=== PATIENT | female | born 1980 | race Caucasian/White ===

== ENCOUNTER → 2020-04-25 16:27 | Outpatient (BNVA) | payer OTHER, SELFPAY | DX: Z20.828 Contact with and (suspected) exposure to other viral communicable diseases (principal) | CPT/HCPCS: 87635 ==

== ENCOUNTER → 2020-06-13 11:58 | Outpatient (BNVA) | payer OTHER, SELFPAY | PROVIDERS: Visit Provider Nurse Practitioner Family | DX: J20.9 Acute bronchitis, unspecified (principal); Z20.822 Contact with and (suspected) exposure to COVID-19 | CPT/HCPCS: 87635 ==

== ENCOUNTER 2020-06-21 18:57 | Emergency (ER) | payer SELFPAY ==
[2020-06-21 19:04] VITALS: BP 131/95; PULSE 92; RESP 18; TEMP 36.9; O2SAT 96; BMI 45.1
--- NOTE | 2020-06-21 19:12 | XRR_ITS ---
PROCEDURE INFORMATION: Exam: XR Right Knee Exam date and time: 06/21/2020 7:18 PM Age: 39 years old Clinical indication: Pain; Knee; Right; Prior surgery; Surgery date: 6+ months; Surgery type: Acl; Additional info: Pian, swelling TECHNIQUE: Imaging protocol: XR Right knee. Views: 3 views. COMPARISON: No relevant prior studies available. FINDINGS: Bones/joints: There is a satisfactory appearance of the postoperative changes of ACL reconstruction. There is a serpiginous lucent line in the intercondylar portion of the femur on the straight AP view suspected be postoperative changes or prominent nutrient vascular channel. There is no knee joint effusion. The joint spaces are maintained. There is no intra-articular body. No acute fracture or dislocation. No chondrocalcinosis. Soft tissues: There is subcutaneous edema lateral to the knee. There is no foreign body. XR/XR knee RT 3V* [id number] IMPRESSION: No acute bony abnormality.
--- NOTE | 2020-06-21 19:12 | XRR_ITS ---
PROCEDURE INFORMATION: Exam: XR Right Hip Exam date and time: 06/21/2020 7:18 PM Age: 39 years old Clinical indication: Hip pain; Right hip TECHNIQUE: Imaging protocol: XR Right hip. Views: 1 view hip with pelvis when performed. COMPARISON: No relevant prior studies available. FINDINGS: Bones/joints: Unremarkable. No acute fracture. No evidence of avascular necrosis. No dislocation. No significant degenerative changes. Soft tissues: Unremarkable. XR/XR hip RT 2-3V wo/w pel* [id number] IMPRESSION: No acute findings.
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
[2020-06-21 19:22] VITALS: BP 131/101; PULSE 95; RESP 18; O2SAT 95
[2020-06-21] MEDS: TRAMadol 50 mg Tablet PO (20:16)
[2020-06-21 20:20] VITALS: BP 132/96; PULSE 90; RESP 18; O2SAT 96
--- NOTE | 2020-06-24 10:09 | DCPLANNER ---
phlebotomy manager had message to schedule a follow up appointment for patient with ortho. phlebotomy manager called the ortho clinic, spoke with Michelle, gave clinic patients information. phlebotomy manager was told that patients information would be printed and reviewed. Clinic will call patient with appointment information.
--- NOTE | 2020-07-10 07:58 | DCPLANNER ---
business strategy manager called ortho to confirm that a follow up appointment had been scheduled for patient. business strategy manager spoke with Michelle, who stated that clinic tried to call patient, unable to speak with patient and unable to leave a voicemail. business strategy manager called phone number [phone], unable to speak with patient at this time, was able to leave a voicemail for patient to return case work aide phone call.
== END 2020-06-21 20:33 | disposition home or self-care (01) ==
LOC: ER 20:15
PROVIDERS: Emergency Provider Nurse Practitioner Family
DX: M25.561 Pain in right knee (principal)
CPT/HCPCS: 73502; 73562; 99283

== ENCOUNTER 2021-11-07 17:02 | Emergency (ER) | payer SELFPAY ==
[2021-11-07 17:05] VITALS: BP 148/98; PULSE 100; RESP 18; TEMP 37.7; O2SAT 96; BMI 44.1
--- NOTE | 2021-11-07 17:21 | XRR_ITS ---
PROCEDURE INFORMATION: Exam: XR Chest Exam date and time: 11/07/2021 5:27 PM Age: 41 years old Clinical indication: Cough TECHNIQUE: Imaging protocol: Radiologic exam of the chest. Views: 1 view. COMPARISON: No relevant prior studies available. FINDINGS: Lungs: Unremarkable. No consolidation. Pleural spaces: Unremarkable. No pleural effusion. No pneumothorax. Heart/Mediastinum: Unremarkable. No cardiomegaly. Bones/joints: Unremarkable. XR/XR chest 1V portable [id number] IMPRESSION: No acute findings.
[2021-11-07 17:47] LABS: Rapid Strep A Test Negative (Negative)
[2021-11-07 17:55] LABS: SARS Covid-2 Antigen Negative (Negative)
--- NOTE | 2021-11-07 17:57 | W.ED.URI ---
HPI - URI/Sore Throat General: Chief Complaint: Upper Respiratory Infection Stated Complaint: sore throat, congestion Time Seen by Provider: 11/07/21 17:24 Source: patient Mode of arrival: ambulatory Limitations: no limitations History of Present Illness: 41-year-old female states that over the last 2 days she has had some congestion along with low-grade fevers does have a low-grade fever here states she had a some sore throat along with a burning in her chest. She denies any sick contacts states she is also lost her voice. Denies any vomiting or diarrhea denies any severe pain rates her throat pain a 4 out of 10 currently Associated symptoms: Reports fever(s); Deny abdominal pain, chest pain, diarrhea, headache(s), nausea or vomiting Review of Systems Const: Reports: fever(s) and body aches Eyes: Denies: blurry vision or eye discomfort ENMT: Reports: throat pain Card: Denies: chest pain Resp: Reports: non-productive cough GI: Denies: abdominal pain, nausea, vomiting or diarrhea : Denies: dysuria Musc: Denies: neck pain or back pain Skin/Breast: Denies: rash Neuro: Denies: headache(s) Psych: Denies: depression Ran/Lymph: Denies: easy bruising All/Imm: Denies: urticaria PFSH ED PFSH: Medical History 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, recurrent, in partial remission Major depressive disorder, recurrent, moderate Psychiatric care Social History Smoking and tobacco status: never smoked Second hand smoke exposure: No Smoking risk assessment/counseling performed?: No Female Reproductive History: Date of last menstrual period: 10/24/21 Physical Exam Const: COMMON NORMALS: no acute distress, patient oriented x3 and healthy appearing HENMT: COMMON NORMALS: normocephalic and atraumatic HEAD & SCALP: normocephalic and atraumatic Eye: COMMON NORMALS: Equal, round and reactive pupils present and EOMs intact bilaterally PUPIL: Yes Equal, round and reactive pupils present Neck/C-Spine: COMMON NORMALS: full ROM and supple Chest: COMMONS NORMALS: normal inspection of the chest and normal palpation of entire chest wall Resp: COMMON NORMALS: normal respiratory effort, No retractions, No use of accessory muscles and clear to auscultation bilaterally AUSCULTATION: clear to auscultation bilaterally Cardio: COMMON NORMALS: regular rate, regular rhythm and No murmurs present (Cardio) RATE: regular rate RHYTHM: regular rhythm GI: COMMON NORMALS: Normal to inspection, nondistended, normoactive bowel sounds present, Soft to palpation, non-tender and no masses PALPATION: Yes Soft to palpation Extremity: COMMON NORMALS: normal to inspection and full ROM Neuro: COMMON NORMALS: patient oriented x3, moves all extremities and no focal motor deficits Psych: COMMON NORMALS: mental status grossly normal, Normal thought process present and cooperative THOUGHT PROCESS: Normal thought process present Skin: COMMON NORMALS: no rashes or lesions noted and no wounds GENERAL SKIN EXAM: no rashes or lesions noted Course Vital Signs: Vital signs: Vital Signs Temperature 99.9 F H 11/07/21 17:05 Pulse Rate 100 11/07/21 17:05 Respiratory Rate 18 11/07/21 17:05 Blood Pressure 148/98 11/07/21 17:05 Pulse Oximetry 96 11/07/21 17:05 Oxygen Delivery Me thod 11/07/21 17:05 MDM - URI/Sore Throat Medical Decision Making Patient presents here with cough congestion fever along with sore throat likely has bronchitis she does have a low-grade fever here we will give her Decadron Keflex COVID was negative she is to follow-up with PCP and return if worsening. Lab Data Radiology Impressions Chest X-Ray 11/07/21 17:21 IMPRESSION: No acute findings. Laboratory Results SARS-CoV-2 Ag (Rapid) Negative (Negative) 11/07/21 17:22 Group A Strep Rapid Negative (Negative) 11/07/21 17:22 Discharge Plan Discharge Patient Disposition: Home Clinical Impression: Upper respiratory infection Qualifiers: URI type: unspecified URI Qualified Code(s): J06.9 - Acute upper respiratory infection, unspecified Condition: Stable Prescriptions: New cephalexin 500 mg capsule 500 mg PO TID 7 Days Qty: 21 0RF No Action hydroxyzine pamoate 25 mg capsule 25 mg PO BID PRN (Reason: anxiety) Qty: 30 1RF Rx Instructions: Take one capsule up to twice a day, if needed for anxiety sertraline 100 mg tablet 100 mg PO .q am Qty: 30 1RF Rx Instructions: Take one tablet by mouth every morning; stop paroxetine trazodone 100 mg tablet 200 mg PO .HS Qty: 60 1RF Rx Instructions: take two tablets by mouth daily at bedtime lamotrigine 25 mg tablet 50 mg PO DAILY Qty: 60 0RF Rx Instructions: For first 2 weeks: Take 1 tablet daily at bedtime; then take 2 tablets at bedtime for 2 weeks lamotrigine 100 mg tablet 100 mg PO DAILY Qty: 30 0RF Rx Instructions: AFTER completing the 25mg and 50mg doses: Take one tablet daily at bedtime Discharge Orders: Discharge ED (Routine); Ordered 11/07/21 Ordered By: Nicky Cruz Discharge Diet: Advance as tolerated Discharge Activity: Resume usual activity Patient Instructions: Upper Respiratory Infection (ED) Stand Alone Forms: Work/School Release Coding 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
[2021-11-07 18:00] VITALS: BP 138/96; PULSE 86; O2SAT 95
--- NOTE | 2021-11-07 18:12 | PC.NURSE ---
pt reports sore throat since yesterday. reports a hoarse voice. reports slight dyspnea, took a breathing tx this morning with improvement. reports around fall time she usually gets bronchitis.
[2021-11-07] MEDS: acetaminophen 500 mg Tablet 1000 MG PO (18:16)
[2021-11-07] MEDS: dexamethasone 10 mg/mL INJ IM (18:17)
[2021-11-07 18:32] VITALS: BP 160/98; PULSE 98; RESP 16; O2SAT 98
== END 2021-11-07 18:33 | disposition home or self-care (01) ==
PROVIDERS: Emergency Provider Emergency Medicine
DX: J06.9 Acute upper respiratory infection, unspecified (principal)
CPT/HCPCS: 71045; 87081; 87426; 87880; 96372; 99284; J1100

== ENCOUNTER → 2022-10-14 09:37 | Outpatient (BNVA) | payer SELFPAY | PROVIDERS: Visit Provider Nurse Practitioner Family | DX: R39.9 Unspecified symptoms and signs involving the genitourinary system (principal) | CPT/HCPCS: 81000; 87086 ==

== ENCOUNTER 2023-03-15 11:18 | Outpatient (CLI) | payer OTHER, SELFPAY ==
--- NOTE | 2023-03-15 11:24 | MM_ITS ---
WS: [id number] BILATERAL SCREENING DIGITAL TOMOSYNTHESIS MAMMOGRAM WITH CAD HISTORY: SCREENING COMPARISON: None available. Bilateral CC and MLO views with tomosynthesis and synthetic mammography submitted. Computer aided det ection analyzed. Breast composition: There are scattered areas of fibroglandular density. No suspicious masses, microc alcifications or architectural distortion. Benign calcifications. IMPRESSION: MM/[place] [id number] BI-RADS: 2-Benign FOLLOW UP: 1 Year Follow-up
== END 2023-03-15 11:19 | disposition home or self-care (01) ==
LOC: RAD 11:19
PROVIDERS: Visit Provider Family Medicine
DX: Z12.31 Encounter for screening mammogram for malignant neoplasm of breast (principal); R92.323 Mammographic fibroglandular density, bilateral breasts; R92.1 Mammographic calcification found on diagnostic imaging of breast
CPT/HCPCS: 77063; 77067

== ENCOUNTER → 2023-10-19 11:51 | Outpatient (BNVA) | payer OTHER, SELFPAY | PROVIDERS: Visit Provider Registered Nurse Neonatal Intensive Care | DX: R05.8 Other specified cough (principal) | CPT/HCPCS: 87426 ==

== ENCOUNTER → 2024-12-12 09:41 | Outpatient (BNVA) | payer OTHER, SELFPAY | PROVIDERS: Visit Provider Nurse Practitioner Psychiatric/Mental Health | DX: Z79.899 Other long term (current) drug therapy (principal) | CPT/HCPCS: 80053; 84439; 84443; 85025 ==